=== PATIENT | female | born 1965 | race Caucasian/White ===

== ENCOUNTER 2021-11-10 17:45 | Emergency (ER) | payer OTHER, SELFPAY ==
[2021-11-10 18:00] VITALS: BP 167/98; PULSE 95; RESP 14; TEMP 37.3; O2SAT 99
--- NOTE | 2021-11-10 18:14 | ED.SKABFB ---
HPI - Skin/Abscess/Foreign Bdy General Chief complaint: Skin/Abscess/Foreign Body Stated complaint: sting spreading Time Seen by Provider: 11/10/21 18:05 Source: patient Mode of arrival: ambulatory Limitations: no limitations History of Present Illness HPI narrative: Ms. Mcadams is a 56-year-old female patient presenting to the clinic today with complaints of a wasp pain that occurred yesterday to her left upper arm. She reports she has a lot of swelling and itching to the upper and lower arm around the elbow. She denies any fever or chills. Related Data Allergies Allergy/AdvReac Type Severity Reaction Status Date / Time No Known Allergies Allergy Verified 11/10/21 18:08 Review of Systems Review of Systems: Pertinent positives per HPI. Patient denies any fever, chills,headache, visual changes, dizziness, cough, runny nose, sore throat, shortness of breath, chest pain, palpitations, nausea, vomiting, diarrhea, constipation, abdominal pain, or any urinary issues. PMFSH Comments At the time of my signature, I reviewed and agree with the nursing past medical, surgical, social, and family history. There is no relevant family history pertinent to the patient complaint. Exam Narrative: General: Well-developed, well nourished, in no apparent distress Head: Normocephalic, atraumatic. Cardio: Regular rate and rhythm, s1 and s2 normal, no murmur appreciated. Resp: Clear to auscultation bilaterally, no rhonchi, rales, wheezing or rubs. Integumentary: [place], warm, and dry, intact without lesion, red itchy raised indurated/demarked rash that starts at the back of the left distal upper arm spreads to the elbow and proximal forearm. Area is firm and erythemic to palpation. Course Course Emergency Course: Portions of this record may have been created with voice recognition software. Level of Care: Express Care Visit Vital Signs Vital signs: Vital Signs Temperature 37.3 C 11/10/21 18:00 Pulse Rate 95 11/10/21 18:00 Respiratory Rate 14 11/10/21 18:00 Blood Pressure 167/98 H 11/10/21 18:00 Pulse Oximetry 99 11/10/21 18:00 Oxygen Delivery Room Air 11/10/21 18:00 Temperature 37.3 C 11/10/21 18:00 Pulse Rate 95 11/10/21 18:00 Respiratory Rate 14 11/10/21 18:00 Blood Pressure 167/98 H 11/10/21 18:00 Pulse Oximetry 99 11/10/21 18:00 Oxygen Delivery Room Air 11/10/21 18:00 Vital signs reviewed MDM - Skin/Abscess/Foreign Bdy MDM Narrative Medical decision making narrative: At the time of visit patient is resting comfortably on the exam table. Denies any difficulty breathing or shortness of breath. She has an area that appears to be cellulitis/allergic reaction to a wasp being to the left upper arm that extends to the elbow and forearm. I suspect that this is allergic reaction but I also want to treat for a secondary infection and prescription for prednisone and doxycycline was given to the patient. Supportive measures were discussed with the patient and she voiced understanding of discharge instructions and agrees to the treatment plan. Differential Diagnosis Differential diagnosis: Likely abscess of skin or subcutaneous tissue, cellulitis, insect bites and other (Allergic reaction) Discharge Plan Discharge Clinical Impression: Cellulitis, Allergic reaction, Accidental insect sting Patient Disposition: Home, Self-Care Condition: Stable Instructions: Antibiotic Form, Cellulitis (ED), Insect Bite or Sting (ED), General Allergic Reaction (ED) Prescriptions: New prednisone 20 mg tablet 40 mg PO DAILY 5 Days Qty: 10 0RF doxycycline monohydrate 100 mg capsule 100 mg PO BID 7 Days Qty: 14 0RF Follow-up/Referrals: PHYSICIAN,BUS COMPANY MANAGER [Primary Care Provider] - Time of Disposition: 18:18 Quality NIHSS Nursing Documentation ED NIHSS nursing documentation: reviewed/agree
== END 2021-11-10 18:20 | disposition home or self-care (01) ==
PROVIDERS: Emergency Provider Nurse Practitioner Family
DX: L03.114 Cellulitis of left upper limb (principal); T63.461A Toxic effect of venom of wasps, accidental (unintentional), initial encounter
CPT/HCPCS: 99213; G0463